=== PATIENT | male | born 1980 | race African-American/Black ===

== ENCOUNTER 2022-11-18 14:51 | Emergency (ER) | payer OTHER ==
[2022-11-18 15:02] VITALS: BP 135/87; PULSE 64; RESP 20; TEMP 98.2; BMI 21.3
[2022-11-18] MEDS ORDERED: DEXAMETHASONE 4 MG TABLET (FP) PO ONE (15:16)
[2022-11-18] MEDS ORDERED: ONDANSETRON *ODT* 4 MG TABLET SL ONE (15:16)
[2022-11-18] MEDS ORDERED: DEXAMETHASONE SOD PHOSPHATE/PF 10 MG/ML SDV ONE (15:34)
[2022-11-18] MEDS ORDERED: ONDANSETRON *ODT* 4 MG TABLET ONE (15:34)
== END 2022-11-18 16:01 | disposition home or self-care (01) ==
LOC: FER 14:51
DX: R07.0 Pain in throat (principal); R05.9 Cough, unspecified; R11.0 Nausea; R19.7 Diarrhea, unspecified; J02.0 Streptococcal pharyngitis; Z20.822 Contact with and (suspected) exposure to COVID-19
CPT/HCPCS: 0241U-QW; 87651; 99283-25; Q0162

== ENCOUNTER 2023-08-18 13:12 | Emergency (ER) | payer BC, OTHER ==
[2023-08-18 13:27] VITALS: RESP 18; TEMP 98.9; BMI 23.4
[2023-08-18 13:46] LABS: HEMATOCRIT 43.5 % (35.4-49); HEMOGLOBIN 14.3 G/dL (11.7-16.9); MCH 29.9 pg (25.7-33.7); MCHC 32.9 g/dl (32.0-35.9); PLATELET COUNT 203.6 10^3/uL (134-434); RBC 4.78 10^6/uL (4.00-5.60); RDW 14.3 % (11.9-15.9); WHITE BLOOD COUNT 4.7 10^3/uL (4.0-10.8)
[2023-08-18 13:54] LABS: INR 0.97 (0.83-1.09); PLATELET ESTIMATE ADEQUATE; PROTHROMBIN TIME (PATIENT) 11.3 SEC (9.7-13.0)
[2023-08-18] MEDS: SODIUM CHLORIDE 1,000 ML IV ONE (13:55)
[2023-08-18 14:04] LABS: ALBUMIN 4.7 g/dl (3.4-5.0); ALK PHOS 43 U/L (45-117); ANION GAP 6 mmol/L (4-13); BILIRUBIN,TOTAL 0.5 mg/dl (0.2-1); CALCIUM 10.3 mg/dl (8.5-10.1); CHLORIDE 103 mmol/L (98-107); CO2 33 mmol/L (21-32); CREATININE 1.2 mg/dl (0.6-1.3); GLUCOSE,RANDOM 111 mg/dl (74-106); MAGNESIUM 2.1 mg/dL (1.8-2.4); POTASSIUM 3.9 mmol/L (3.5-5.1); SGOT/AST 55 U/L (15-37); SGPT/ALT 21 U/L (7-52); SODIUM 142 mmol/L (136-145); TOT PROT 7.3 g/dl (6.4-8.2)
[2023-08-18 15:31] LABS: COCAINE, UR NEGATIVE (NEGATIVE); OPIATES, URI NEGATIVE (NEGATIVE); URINE BARBITURATES NEGATIVE (NEGATIVE)
[2023-08-18 15:32] LABS: METHADONE, UR NEGATIVE (NEGATIVE); PHENCYCLIDINE,URINE NEGATIVE (NEGATIVE); URINE AMPHETAMINES POSITIVE (NEGATIVE); URINE BENZODIAZEPINES NEGATIVE (NEGATIVE)
[2023-08-18 16:55] VITALS: BP 130/77; PULSE 91
== END 2023-08-18 18:13 | disposition home or self-care (01) ==
LOC: FER 13:12
PROC: 3E0337Z Introduction of Electrolytic and Water Balance Substance into Peripheral Vein, Percutaneous Approach (ICD-10-PCS; principal; 2023-08-18)
DX: R41.82 Altered mental status, unspecified (principal); R61 Generalized hyperhidrosis; Z20.822 Contact with and (suspected) exposure to COVID-19
CPT/HCPCS: 0241U-QW; 36415; 70450-TC; 70544-TC; 70551-TC; 71045-TC-FY; 80053; 80307; 81003; 81015; 83605; 83735; 84443; 84484; 85027; 85610; 93005; 99291